=== PATIENT | female | born 1980 | race Caucasian/White ===

== ENCOUNTER 2019-08-08 15:54 | Emergency (ER) | payer OTHER ==
[~2019-08-08] VITALS: Ht 162.6 cm; Wt 115.2 kg
[2019-08-08] MEDS ORDERED: METFORMIN HCL500 M3 PO (16:21)
[2019-08-08] MEDS ORDERED: BRINTELLIX20 MG PO (16:22)
[2019-08-08] MEDS ORDERED: ADDERALL 20 MG20 MG PO (16:22)
[2019-08-08] MEDS ORDERED: LYRICA225 MG PO (16:22)
[2019-08-08 17:24] LABS: BASOPHILS 0.6 % (0.0-2.0); EOSINOPHILS 2.3 % (0.0-3.0); HEMATOCRIT 41.7 % (37.0-47.0); HEMOGLOBIN 13.7 gm/dL (12.0-15.0); LYMPHOCYTES 27.7 % (24.0-44.0); MCH 27.1 pg (26.0-34.0); MCHC 32.8 g/dL (28.0-37.0); MCV 82.6 fL (80.0-100.0); MONOCYTES 7.3 % (1.0-8.0); PLATELET COUNT 342 thou/uL (150-400); POLYS 62.1 % (36.0-66.0); RBC 5.05 mil/uL (4.20-5.00); RDW 14.7 % (10.5-14.5); WBC 9.7 thou/uL (4.0-11.0)
[2019-08-08 17:29] LABS: ANION GAP 10 mmol/L (7-16); BUN 10 mg/dL (7-18); CALCIUM 8.8 mg/dL (8.5-10.1); CHLORIDE 102 mmol/L (98-107); CO2 22 mmol/L (21-32); CREATININE 0.8 mg/dL (0.6-1.0); GLUCOSE 132 mg/dL (74-106); POTASSIUM 4.4 mmol/L (3.5-5.1); SODIUM 134 mmol/L (136-145)
[2019-08-08 17:39] LABS: ALBUMIN 3.8 g/dL (3.4-5.0); DIRECT BILIRUBIN < 0.1 mg/dL (<0.1-0.2); SGOT 46 U/L (15-37); SGPT 53 U/L (30-65); TOTAL BILIRUBIN 0.6 mg/dL (<0.1-1.0); TOTAL PROTEIN 7.9 g/dL (6.4-8.2); TROPONIN-I <0.06 ng/mL (<0.06)
[2019-08-08 18:37] VITALS: BP 132/77
--- NOTE | 2019-08-09 16:18 | EKG ---
[facility] [place] [place] [address] ELECTROCARDIOGRAM REPORT Name: ALANNA OSCAR Room #: [facility] JUDY Hurd#: [id number] Admission: 08/08/19 Attend Phys: Discharge: 08/08/19 Date of : 82 Report #: [id number] THIS REPORT FOR: //name// [facility] ED Test Date: 2019-08-08 Test Time: 16:13:14 Pat Name: ALANNA OSCAR Department: Room: Gender: F [employer] Server: JOSEPH : 1980 Requested By: Ana Cristina Harman Order Number: [id number] MD: Henry Arciniega Measurements Intervals [place] Rate: 99 P: 5 CT: 138 QRS: 50 QRSD: 90 T: 25 QT: 360 QTc: 462 Interpretive Statements Sinus rhythm Poor R-wave progression Insignificant Q waves in the inferior leads noted Nonspecific ST-T wave changes No previous ECG available for comparison Electronically Signed On 08-09-2019 16:18:11 GRANT OFFICER by Henry Arciniega [email or web address] <ELECTRONICALLY SIGNED> By: Henry Arciniega MD 08/09/19 1618 1613 12 Henry Arciniega MD /APRIL
== END 2019-08-08 18:38 | disposition home or self-care (01) ==
LOC: ER 15:54
PROVIDERS: Emergency Medicine
DX: R07.89 Other chest pain (principal); Z88.1 Allergy status to other antibiotic agents; Z88.8 Allergy status to other drugs, medicaments and biological substances